=== PATIENT | female | born 1990 | race Caucasian/White ===

== ENCOUNTER 2020-12-29 16:33 | Emergency (ER) | payer OTHER, SELFPAY ==
[2020-12-29 16:42] VITALS: BP 115/83; PULSE 115; RESP 18; TEMP 38.2; O2SAT 100
[2020-12-29 16:44] VITALS: BP 115/83; PULSE 115; RESP 18; TEMP 38.2; O2SAT 100
--- NOTE | 2020-12-29 17:52 | ED.GENADULT ---
HPI - General Adult General Chief complaint: Upper Respiratory Infection Stated complaint: BODYACHES, CHILLS Time Seen by Provider: 12/29/20 16:42 Source: patient Mode of arrival: ambulatory Limitations: no limitations History of Present Illness HPI narrative: Patient presents with chief complaint of headache, body aches and low-grade fever that began today. Patient is concerned that she may have Covid. Patient has not had known contact with Covid positive persons. Patient is not vaccinated. Patient does not have shortness of breath, chest pain, nausea, vomiting, diarrhea or other symptoms. Related Data Home Medications Medication Instructions Recorded Confirmed No Home Medications 12/29/20 12/29/20 Allergies Allergy/AdvReac Type Severity Reaction Status Date / Time No Known Allergies Allergy Unverified 12/29/20 16:44 Review of Systems Review of Systems: CONSTITUTIONAL: Reports body aches and low-grade fever denies chills, or sweats. EYES: Denies visual changes, redness, or discharge. ENT: Denies rhinorrhea, congestion, sore throat, or otalgia. CARDIOVASCULAR: Denies chest pain, palpitations, or edema. RESPIRATORY: Denies cough or dyspnea. GASTROINTESTINAL: Denies abdominal pain, nausea, vomiting, or diarrhea. GENITOURINARY: Denies dysuria or hematuria. SKIN: Denies rash or itching. MUSCULOSKELETAL: Denies back pain, joint pain, or myalgia. NEUROLOGIC: Reports headache, denies numbness, dizziness, or weakness. PSYCHIATRIC: Denies anxiety or depression. Exam Narrative: GENERAL: Well-appearing, well-nourished, and in no acute distress. Nontoxic in appearance. HEAD: Normocephalic, atraumatic. EYES: PERRLA and EOMI. ENT: Bilateral TMs pearly handley nonbulging NECK: Supple. No adenopathy or masses. CHEST: Clear to auscultation. No respiratory distress. No wheezes rales or rhonchi. No coughing during exam. HEART: Regular rate and rhythm. No murmur heard. Normal peripheral pulses. EXTREMITIES: Normal range of motion. No edema. SKIN: Warm, dry, no rash. NEURO: No focal deficits. Alert and oriented x3. PSYCH: Normal mood and affect. Course Vital Signs Vital signs: Vital Signs Temperature 100.7 F H 12/29/20 16:42 Pulse Rate 115 H 12/29/20 16:42 Respiratory Rate 18 12/29/20 16:42 Blood Pressure 115/83 12/29/20 16:42 Pulse Oximetry 100 12/29/20 16:42 Temperature 100.7 F H 12/29/20 16:44 Pulse Rate 100 12/29/20 17:56 Respiratory Rate 15 12/29/20 17:56 Blood Pressure 101/62 12/29/20 17:56 Pulse Oximetry 97 12/29/20 17:56 Medical Decision Making MDM Narrative Medical decision making narrative: Discussed testing timeframe of any quarantining. Patient instructed to obtain a pulse ox and return to emergency department if her oxygen saturation dropped lower than 92. Patient strict return to emergency department if she develops any emergent symptoms. Vital Signs Vital Signs: Vital Signs Temperature 100.7 F H 12/29/20 16:42 Pulse Rate 115 H 12/29/20 16:42 Respiratory Rate 18 12/29/20 16:42 Blood Pressure 115/83 12/29/20 16:42 Pulse Oximetry 100 12/29/20 16:42 Temperature 100.7 F H 12/29/20 16:44 Pulse Rate 100 12/29/20 17:56 Respiratory Rate 15 12/29/20 17:56 Blood Pressure 101/62 12/29/20 17:56 Pulse Oximetry 97 12/29/20 17:56 Lab Data Labs: Lab Results 12/29/20 Range/Units 17:23 SARS-CoV-2 RNA (RT-PCR) Pending Discharge Plan Discharge Clinical Impression: Viral infection Patient Disposition: Home, Self-Care Condition: Stable Instructions: Antibiotic Form, Viral Syndrome (ED), COVID-19: Slow the Coronavirus Spread (ED) Additional Instructions: Follow the health department guidelines regarding quarantine instructions. Call your primary care in 48 to 72 hours for Covid test results. Return to emergency department if you have any emergent symptoms. Prescriptions: No Action No Home Medications
[2020-12-29 17:56] VITALS: BP 101/62; PULSE 100; RESP 15; O2SAT 97
[2020-12-30 18:26] LABS: SARS-CoV-2 RNA PCR Positive
== END 2020-12-29 18:18 | disposition home or self-care (01) ==
PROVIDERS: Physician Assistant; Emergency Provider Emergency Medicine
DX: U07.1 COVID-19 (principal)
CPT/HCPCS: 99283; C9803; U0003; U0005